=== PATIENT | male | born 1955 | race Caucasian/White ===

== ENCOUNTER → 2019-12-14 | Outpatient (CLI) | payer OTHER | LOC: CAT 10:06 | PROVIDERS: ATTEND Internal Medicine Cardiovascular Disease | DX: Z13.6 Encounter for screening for cardiovascular disorders (principal); I25.10 Atherosclerotic heart disease of native coronary artery without angina pectoris; E78.00 Pure hypercholesterolemia, unspecified ==

== ENCOUNTER → 2019-12-21 | Outpatient (CLI) | payer OTHER | LOC: SJCVC 12:22 | PROVIDERS: ATTEND Internal Medicine Cardiovascular Disease | DX: R94.31 Abnormal electrocardiogram [ECG] [EKG] (principal); I48.19 Other persistent atrial fibrillation; R93.1 Abnormal findings on diagnostic imaging of heart and coronary circulation; I10 Essential (primary) hypertension; E11.9 Type 2 diabetes mellitus without complications; E78.00 Pure hypercholesterolemia, unspecified; Z79.82 Long term (current) use of aspirin; Z79.899 Other long term (current) drug therapy ==

== ENCOUNTER → 2019-12-28 | Outpatient (CLI) | payer OTHER ==
[~2019-12-28] MED LIST: AMITIZA 24 MCG24 MC1 PO; ASA81BEC PO; CARVEDILOL25 MG PO; CELEBREX 200 M200 MG PO; LASIX 40 MG TAB40 MG PO; LEVO-T75 MCG PO; LIPITOR10 MG PO; LOVAZA1000 MG PO; LYRICA150 MG PO; OXYCONTIN10 M1 PO; PREDNISOLONE 5 M5 M1 PO; PRILOSEC OTC20 MG PO; XARELTO20 MG PO
== END ==
LOC: SJCVCIMAG 07:29
PROVIDERS: ATTEND Internal Medicine Cardiovascular Disease
DX: I08.3 Combined rheumatic disorders of mitral, aortic and tricuspid valves (principal); I27.20 Pulmonary hypertension, unspecified; I11.9 Hypertensive heart disease without heart failure; I49.3 Ventricular premature depolarization; E11.9 Type 2 diabetes mellitus without complications; I25.10 Atherosclerotic heart disease of native coronary artery without angina pectoris; I48.0 Paroxysmal atrial fibrillation; E78.00 Pure hypercholesterolemia, unspecified; Z79.899 Other long term (current) drug therapy

== ENCOUNTER → 2020-01-03 | Outpatient (CLI) | payer OTHER ==
[~2020-01-03] VITALS: Ht 185.4 cm; Wt 122.7 kg
[2020-01-03 08:37] VITALS: BP 115/65
--- NOTE | 2020-01-03 12:04 | CATHLAB ---
Formerly [facility] [place] [address] INVASIVE PROCEDURE REPORT Name: INOCENCIO FERNANDEZ Room #: REG RUDDY Matias#: [id number] Admission: 01/03/20 Attend Phys: Jan Krueger MD Discharge: Date of : 51 Report #: [id number] THIS REPORT FOR: cc: Sam Lazcano Damon DO Park, Jin S. MD ~ APPROVED REPORT Study performed: 01/03/2020 08:26:25 Patient Details Patient Status: Out-Patient Room #: The patient is a 64 year-old male Event Personnel Jan Krueger Campaign Marketing Specialist, Sapna Pedro RN RN, Chelsy Casas RTR, ELSA Scrub, Matheus Delaney RTR Scrub, Sejal Yeh Monitor Procedures Performed Art Access - R radial artery Left Heart Cath w/or w/o Coronaries [id number] [facility] Hemostasis with Hemoband 25165 Initial Mod Sed Same Phys/QHP Gr5y 874251 59584 Mod Sed Same Phys/QHP Ea 772429 Indication Dyspnea, Positive stress test Risk Factors Obesity, Peripheral Vascular Disease, Hypercholesterolemia, Coronary Artery DiseaseHypertension, Diabetes Procedure Narrative The Right Wrist^ was infiltrated with 1% Lidocaine subcutaneous anesthesia. A PINNACLE 6FR TIF Sheath #[id number] sheath was inserted into the Right Radial Artery^. Coronary angiography was performed using coronary diagnostic catheters. The right coronary system was accessed and visualized with a 3DRC catheter. The left coronary system was accessed and visualized with a XB 3 6F GUIDE catheter. The patient tolerated the procedure well and there were no complications associated with the procedure. There was no hematoma. Intraoperative Conscious Sedation Sedation start time: 947 Case end Time: [facility] [address] [place] [address] INVASIVE PROCEDURE REPORT Name: INOCENCIO FERNANDEZ Hector Room #: REG [facility]#: [id number] Admission: 01/03/20 Attend Phys: Jan Krueger MD Discharge: Date of : 51 Report #: [id number] 1030 Fentanyl 50 mcg Versed 1 mg Fluoro Time: 2862.00 minutes Dose: DAP 91702.00 cGycm2 2862 mGy Contrast Type and Amount: Omnipaque 55 ml Coronary Angiography The patient's coronary anatomy is right dominant. Diagnostic Cath Left Main The left main artery is a large-caliber vessel, with mild disease at the ostium. LAD The LAD is a moderate-sized caliber vessel, travels down the anterior wall and wraps around the apex. There is mild to moderate disease in the proximal segment, 40%. Diagonal 1 This is a patent vessel, with no flow-limiting lesions. Circumflex There is a moderate stenosis at the ostium, 50%. OM1 This is a small to moderate-sized caliber vessel, with mild to moderate disease proximally. OM2 This is a small to moderate-sized caliber vessel, with mild proximally. Right Coronary The RCA is a dominant vessel with a total occlusion proximally. The distal RCA and its branches are filled via collateral circulation from the left coronary artery. Left Ventriculography Left Ventriculography was not performed. Ejection Fraction was 55-60% based off patient's Nuclear Cardiac Stress Test. An LVEDP was measured and there is no gradient across the outflow tract. Hemodynamics The aortic pressure is 99/57 mmHg with a mean of mmHg. The left ventricular pressure is 115/14 mmHg with a mean of mmHg. The left ventricular end diastolic pressure is 28 mmHg. Conclusion 1. The RCA has a chronic occlusion. The distal RCA and its branches are well filled via collateral circulation from the left coronary artery. 2. There is mild to moderate disease in the LAD and left circumflex arteries. [facility] [address] [place] [address] INVASIVE PROCEDURE REPORT Name: INOCENCIO FERNANDEZ Room #: REG [facility]#: [id number] Admission: 01/03/20 Attend Phys: Jan Krueger MD Discharge: Date of : 51 Report #: [id number] 3. There is normal LV systolic function. 4. Recommend guideline directed medical therapy. <ELECTRONICALLY SIGNED> By: Jan Krueger MD 01/03/20 1204 1204 1204 Jan Krueger MD /INF
== END | disposition home or self-care (01) ==
LOC: CATH 07:55
PROVIDERS: ATTEND Internal Medicine Cardiovascular Disease
DX: R94.39 Abnormal result of other cardiovascular function study (principal); R06.00 Dyspnea, unspecified; I25.10 Atherosclerotic heart disease of native coronary artery without angina pectoris; I10 Essential (primary) hypertension; E78.00 Pure hypercholesterolemia, unspecified; E11.9 Type 2 diabetes mellitus without complications; I73.9 Peripheral vascular disease, unspecified; F17.210 Nicotine dependence, cigarettes, uncomplicated; G62.9 Polyneuropathy, unspecified; K21.9 Gastro-esophageal reflux disease without esophagitis; E66.09 Other obesity due to excess calories; Z98.890 Other specified postprocedural states; Z79.899 Other long term (current) drug therapy; Z82.49 Family history of ischemic heart disease and other diseases of the circulatory system; Z79.82 Long term (current) use of aspirin

== ENCOUNTER → 2020-01-17 | Outpatient (CLI) | payer OTHER | LOC: SJCVC 12:59 | PROVIDERS: ATTEND Internal Medicine Cardiovascular Disease | DX: R94.31 Abnormal electrocardiogram [ECG] [EKG] (principal); I25.10 Atherosclerotic heart disease of native coronary artery without angina pectoris; I48.0 Paroxysmal atrial fibrillation; I10 Essential (primary) hypertension; E78.00 Pure hypercholesterolemia, unspecified; Z79.899 Other long term (current) drug therapy ==

== ENCOUNTER → 2020-01-26 | Outpatient (CLI) | payer OTHER | LOC: SJCVC 14:43 | PROVIDERS: ATTEND Internal Medicine Cardiovascular Disease | DX: I48.0 Paroxysmal atrial fibrillation (principal); I48.19 Other persistent atrial fibrillation; I11.9 Hypertensive heart disease without heart failure; I25.10 Atherosclerotic heart disease of native coronary artery without angina pectoris; E11.9 Type 2 diabetes mellitus without complications; Z87.891 Personal history of nicotine dependence ==

== ENCOUNTER → 2020-03-01 | Outpatient (CLI) | payer OTHER ==
[~2020-03-01] MED LIST changes: +LIPITOR 20 MG T20 M1 PO; +PACERONE 200 M200 M1 PO; +PLAQUENIL200 MG PO; +PREDNISONE 5 MG5 M1 PO
== END ==
LOC: SJCVC 15:01
PROVIDERS: ATTEND Internal Medicine Cardiovascular Disease
DX: R94.31 Abnormal electrocardiogram [ECG] [EKG] (principal); R00.1 Bradycardia, unspecified; I48.0 Paroxysmal atrial fibrillation; I25.10 Atherosclerotic heart disease of native coronary artery without angina pectoris; E11.9 Type 2 diabetes mellitus without complications; I10 Essential (primary) hypertension; E66.9 Obesity, unspecified; G62.9 Polyneuropathy, unspecified; G47.30 Sleep apnea, unspecified; Z79.82 Long term (current) use of aspirin; Z79.899 Other long term (current) drug therapy; Z87.891 Personal history of nicotine dependence

== ENCOUNTER → 2020-03-10 | Outpatient (CLI) | payer OTHER ==
[2020-03-10 09:56] LABS: ABSOLUTE NEUTROPHILS 3.9 thou/uL (1.4-8.2); EOSINOPHILS 2.8 % (0.0-3.0); HEMATOCRIT 44.8 % (42.0-52.0); HEMOGLOBIN 14.9 gm/dL (14.0-18.0); LYMPHOCYTES 27.8 % (24.0-44.0); MCH 33.9 pg (26.0-34.0); MCHC 33.2 g/dL (28.0-37.0); MONOCYTES 8.8 % (1.0-8.0); PLATELET COUNT 159 thou/uL (150-400); POLYS 59.6 % (36.0-66.0); RBC 4.39 mil/uL (4.50-6.00); RDW 14.4 % (10.5-14.5); WBC 6.5 thou/uL (4.0-11.0)
[2020-03-10 10:05] LABS: ALBUMIN 3.9 g/dL (3.4-5.0); CALCIUM 9.3 mg/dL (8.5-10.1); CREATININE 1.1 mg/dL (0.7-1.3); POTASSIUM 4.3 mmol/L (3.5-5.1); TOTAL BILIRUBIN 0.8 mg/dL (0.2-1.0); TOTAL PROTEIN 6.7 g/dL (6.4-8.2)
== END ==
LOC: LAB 09:01 → CAT 09:01
PROVIDERS: ATTEND Internal Medicine Cardiovascular Disease
DX: Z01.818 Encounter for other preprocedural examination (principal); I48.91 Unspecified atrial fibrillation; I25.10 Atherosclerotic heart disease of native coronary artery without angina pectoris

== ENCOUNTER → 2020-03-10 | Outpatient (CLI) | payer OTHER ==
[~2020-03-10] MED LIST changes: -LIPITOR 20 MG T20 M1 PO; -PACERONE 200 M200 M1 PO; -PLAQUENIL200 MG PO; -PREDNISONE 5 MG5 M1 PO
== END ==
LOC: LAB 10:50
PROVIDERS: ATTEND Internal Medicine Cardiovascular Disease
DX: Z01.812 Encounter for preprocedural laboratory examination (principal); Z20.828 Contact with and (suspected) exposure to other viral communicable diseases

== ENCOUNTER 2020-03-15 06:22 | Observation (INO) | payer OTHER ==
[~2020-03-15] VITALS: Ht 185.4 cm; Wt 124.7 kg
[2020-03-15] VITALS (10 sets, daily range): BP systolic 116–145; BP diastolic 66–87
--- NOTE | ~2020-03-15 | P ---
[facility] [place] [address] PROCEDURE REPORT Name: INOCENCIO FERNANDEZ Room #: 207-P [facility] Pepper.#: [id number] Admission: 03/15/20 Attend Phys: Speedy Loya MD Discharge: Date of : 53 Report #: [id number] THIS REPORT FOR: cc: Sam Lazcano,Sam Mahan,Speedy Easton MD ~ CC: Sam Loya DATE OF SERVICE: 03/15/2020 PREOPERATIVE DIAGNOSIS: Atrial fibrillation. POSTOPERATIVE DIAGNOSIS: Atrial fibrillation. HISTORY: The patient is a 65-year-old with history of atrial fibrillation, here for ablation. PROCEDURES PERFORMED: 1. Atrial fibrillation ablation, CPT code 72776. 2. 3D mapping, CPT code 67540. 3. Intracardiac echo, CPT code 26894. 4. Focal ablation, CPT code 54853. ANESTHESIA: The patient underwent general anesthesia with no anesthesia related complications. DESCRIPTION OF PROCEDURE: The patient underwent informed consent. We discussed the details of the procedure including the risks, which include but not limited to bleeding, vascular damage, stroke, [place] as well as cardiac perforation. He understood these risks and is willing to proceed. The patient was brought to EP laboratory in fasting and sedated state, prepped and draped in sterile fashion. I obtained access to the right femoral vein x 3, placing an 8, 9 and 7-English short sheaths using the modified Seldinger technique. Next, under fluoroscopy, decapolar catheter was placed into the coronary sinus. At baseline, the patient was in atrial fibrillation. Using intracardiac ultrasound, I noted that the patient had two left and two right pulmonary veins. There was also a right middle vein that appeared to be coming off the right inferior pulmonary vein. The patient had a nice thin interatrial septum. The patient was systemically heparinized and a transseptal was performed using an SL1 sheath and a Dallas needle. This was straightforward and I exchanged the SL1 sheath with the cryo sheath and placed a Lasso catheter in the left atrium. Next, I created a detailed 3D geometry and voltage map of the left atrium and then placed the cryoballoon into the left atrium. The left superior pulmonary vein underwent two 4-minute freezes, which resulted in [facility] [address] [place] [address] PROCEDURE REPORT Name: INOCENCIO FERNANDEZ Room #: 207-P [facility] Angelica Decker#: [id number] Admission: 03/15/20 Attend Phys: Speedy Loya MD Discharge: Date of : 51 Report #: [id number] isolation of the vein. Left inferior pulmonary vein underwent a single 4-minute freeze, which resulted in isolation in 30 seconds. The right superior pulmonary vein underwent a 90-second freeze, but that came off because the temps were very cold and I adjusted and performed a second freeze of 4 minutes' duration, which resulted in isolation within 30 seconds. I then turned my attention to the right inferior pulmonary vein and performed two 4-minute freezes and appeared that this vein was isolated. The patient then underwent a posterior roofline. I performed 4 freezes, each of 3 minutes duration along the roof region of the left atrium. Next, the patient was cardioverted and a repeat map was created and showed that all veins were isolated except the right inferior pulmonary vein. This right inferior pulmonary vein had 2 early branches, one superior and one inferior. I therefore went back in with the cryoballoon and performed a 3-minute freeze in the superior branch and a 3-minute freeze in the inferior branch. I then performed an additional 3-minute freeze along the inferior aspect of the right inferior pulmonary vein. I remapped it and this was now isolated. I then went back in with the Lasso and created a detailed 3D voltage map and this showed that we had wide circumferential ablation of all 4 pulmonary veins and that the roof region was also now isolated. Post-ablation, I performed an EP study. His AH interval was noted to be 95 milliseconds, HV interval was 45 milliseconds. AV block was noted at 390 milliseconds. AV candy ERP was noted at 370 milliseconds at a [address] cycle length. Sinus node recovery time was performed pacing at 350 milliseconds and this was noted to be 2000 milliseconds. Next, pacing was performed at 300 milliseconds and the sinus node recovery time was 1300 milliseconds. Post-ablation, the patient had a spontaneous atrial fibrillation and underwent a repeat 200 joule cardioversion. At this point, the procedure was concluded. The patient received systemic protamine and once ACT was within acceptable range, catheters and sheaths were pulled. Hemostasis was obtained. A iobfbc-ji-vcizo suture was performed in the right groin region. CONCLUSIONS: 1. Successful atrial fibrillation ablation with isolation of the pulmonary veins. 2. Successful posterior roofline creation. 3. Normal EP study with normal SA candy function and AV candy function. By: [id number] Speedy Loya MD /nt
[2020-03-15] MEDS ORDERED: PLAQUENIL200 MG PO (07:03)
[2020-03-15] MEDS ORDERED: LIPITOR 20 MG T20 M1 PO (07:04)
[2020-03-15] MEDS ORDERED: PREDNISONE 5 MG5 M1 PO (07:10)
[2020-03-15 07:43] LABS: ABSOLUTE NEUTROPHILS 4.2 thou/uL (1.4-8.2); EOSINOPHILS 3.3 % (0.0-3.0); HEMATOCRIT 43.9 % (42.0-52.0); HEMOGLOBIN 14.9 gm/dL (14.0-18.0); LYMPHOCYTES 31.4 % (24.0-44.0); MCH 34.5 pg (26.0-34.0); MCV 101.5 fL (80.0-100.0); MONOCYTES 8.8 % (1.0-8.0); PLATELET COUNT 173 thou/uL (150-400); POLYS 55.5 % (36.0-66.0); RBC 4.32 mil/uL (4.50-6.00); RDW 13.9 % (10.5-14.5); WBC 7.6 thou/uL (4.0-11.0)
[2020-03-15 07:54] LABS: CALCIUM 9.2 mg/dL (8.5-10.1); POTASSIUM 4.5 mmol/L (3.5-5.1)
[2020-03-15 08:00] LABS: ALBUMIN 4.2 g/dL (3.4-5.0); APTT 25.3 Seconds (24.5-32.8); PROTIME 10.7 Seconds (9.3-11.4); TOTAL BILIRUBIN 0.7 mg/dL (0.2-1.0)
[2020-03-15] MEDS ORDERED: PACERONE 200 M200 M1 PO (12:31)
--- NOTE | 2020-03-15 15:18 | NUR ---
RIGHT GROIN IS C,D,i REMOVED STICHES AND CATHTER AT SITE, NO HEMATOMA, NO OOZING, NO MOTTLING AROUND SITE OR ON EITH LEGS OBSERVED. DENIES ANY CHEST PAIN, NO SOB, ON ROOM AIR. ATE ALL HIS LUNCH. HEART RATE FLUCTUATES ANYWHERE BETWEEN 100-125 ON AMIODARONE GTT WITH FILTER TUBING TO RIGHT FOREARM NO SIGN'S OF INFILTRATION AT SITE NOTED. PEDAL PULSES ARE 2+ BILATERALLY.
[2020-03-16 00:02] VITALS: BP 131/75
--- NOTE | 2020-03-16 03:40 | NUR ---
PATIENT OFF BEDREST AT 1900.RIGHT GROIN C/D/I.NO HEMATOMA NOTED.SANTOS DISCONTINUED.VOIDED PER URINAL.BILATERAL LOWER EXTREMITY PAIN WELL CONTROLLED. PATIENT CHOSE TO SLEEP ON THE RECLINER.MONITOR SHOWS ST.POC CONTINUED.
[2020-03-16 04:15] VITALS: BP 126/84
[2020-03-16 07:21] VITALS: BP 120/77
[2020-03-16 10:17] VITALS: BP 120/77
[2020-03-16 11:23] VITALS: BP 106/66
--- NOTE | 2020-03-16 18:56 | D ---
[facility] [place] [address] DISCHARGE SUMMARY Name: INOCENCIO FERNANDEZ Room #: 207-P [facility] Jeronimo#: [id number] Admission: 03/15/20 Attend Phys: Speedy Loya MD Discharge: 03/16/20 Date of : 53 Report #: [id number] THIS REPORT FOR: cc: Sam Lazcano,Matt Cam MD ~ CC: Sam Loya DATE OF SERVICE: 03/16/2020 ADMITTING DIAGNOSIS: Symptomatic paroxysmal atrial fibrillation. DISCHARGE DIAGNOSES: 1. Symptomatic paroxysmal atrial fibrillation. 2. Coronary artery disease. 3. Diabetes mellitus. 4. Hypertension with neuropathy. PROCEDURES PERFORMED: Atrial fibrillation ablation. DISCHARGE MEDICATIONS: Aspirin 81 mg daily, carvedilol 25 mg b.i.d., Celebrex 200 mg daily, furosemide 40 mg daily, levothyroxine 0.075 daily, lubiprostone 24 mcg capsule b.i.d., omega-3 (Lovaza) 2000 b.i.d., omeprazole 20 daily, oxycodone as needed, Lyrica 150 mg b.i.d., Xarelto 20 mg daily, atorvastatin 20 mg daily, prednisone 5 mg daily, amiodarone 400 mg b.i.d. FOLLOWUP: Dr. Loya in next week. Appointment will be determined on Friday. BRIEF CLINICAL HISTORY: See history and physical in the chart. HOSPITAL COURSE: The patient was admitted to the hospital and underwent uncomplicated atrial fibrillation ablation. Post-procedure, he was found to be in atrial flutter and amiodarone initiated. He has been hemodynamically stable post-procedure and was allowed to ambulate without any difficulties or issues. No hematoma was identified. Discharge physical examination was unremarkable. He is being discharged home in stable and improved condition with previously stated discharge instructions and medications. <ELECTRONICALLY SIGNED> By: Matt Winchester MD 03/16/20 1856 1003 1025 Matt Winchester MD /nt
== END 2020-03-16 12:30 | disposition home or self-care (01) ==
LOC: CATH 06:22 → 2N 07:15 → CATH 11:21 → 2N 12:37
PROVIDERS: ADMIT Internal Medicine Cardiovascular Disease; ATTEND Internal Medicine Cardiovascular Disease
DX: I48.91 Unspecified atrial fibrillation (principal); I25.10 Atherosclerotic heart disease of native coronary artery without angina pectoris; E78.5 Hyperlipidemia, unspecified; E11.42 Type 2 diabetes mellitus with diabetic polyneuropathy; G47.33 Obstructive sleep apnea (adult) (pediatric); E66.9 Obesity, unspecified; Z68.36 Body mass index [BMI] 36.0-36.9, adult; Z79.82 Long term (current) use of aspirin; Z79.899 Other long term (current) drug therapy; Z87.891 Personal history of nicotine dependence
CPT/HCPCS: 62110; 62900; 65020; 65040; 65130; 70005

== ENCOUNTER → 2020-03-23 | Outpatient (CLI) | payer OTHER ==
[~2020-03-23] MED LIST changes: +HYDROCODON-ACE1 EA10 PO; +LIPITOR 20 MG T20 M1 PO; +PACERONE 200 M200 M1 PO; +PLAQUENIL200 MG PO; +PREDNISONE 5 MG5 M1 PO
== END ==
LOC: SJCVC 14:34
PROVIDERS: ATTEND Internal Medicine Cardiovascular Disease
DX: I48.0 Paroxysmal atrial fibrillation (principal); R94.31 Abnormal electrocardiogram [ECG] [EKG]; I25.10 Atherosclerotic heart disease of native coronary artery without angina pectoris; I10 Essential (primary) hypertension; E66.9 Obesity, unspecified; E78.5 Hyperlipidemia, unspecified; Z87.891 Personal history of nicotine dependence; Z79.82 Long term (current) use of aspirin; Z79.899 Other long term (current) drug therapy

== ENCOUNTER → 2020-03-27 | Outpatient (CLI) | payer OTHER ==
[~2020-03-27] MED LIST changes: -HYDROCODON-ACE1 EA10 PO
== END ==
LOC: LAB 11:29
PROVIDERS: ATTEND Internal Medicine Cardiovascular Disease
DX: Z01.812 Encounter for preprocedural laboratory examination (principal); Z20.828 Contact with and (suspected) exposure to other viral communicable diseases

== ENCOUNTER → 2020-03-31 | Outpatient (CLI) | payer OTHER ==
[~2020-03-31] VITALS: Ht 185.4 cm; Wt 125.0 kg
[~2020-03-31] MED LIST changes: +HYDROCODON-ACE1 EA10 PO
--- NOTE | ~2020-03-31 | P ---
[facility] [place] [address] PROCEDURE REPORT Name: INOCENCIO FERNANDEZ Room #: REG [facility]#: [id number] Admission: 03/31/20 Attend Phys: Speedy Loya MD Discharge: Date of : 53 Report #: [id number] THIS REPORT FOR: cc: Sam Lazcano Damon DO Couchonnal, Luis F. MD ~ DATE OF SERVICE: 03/31/2020 PREOPERATIVE DIAGNOSIS: Atrial fibrillation. POSTOPERATIVE DIAGNOSIS: Atrial fibrillation. DESCRIPTION OF PROCEDURE: The patient underwent informed consent. He was prepped in a standard fashion. He was sedated by the Anesthesiology service. Once sedated, he underwent a 200 joule synchronized cardioversion with yazidism of sinus rhythm. There were no procedure related complications. CONCLUSIONS: Successful DC cardioversion with yazidism of sinus rhythm. By: 1234 [id number] Speedy Loya MD /nt
[2020-03-31 10:49] VITALS: BP 118/77
[2020-03-31 11:04] LABS: ABSOLUTE NEUTROPHILS 3.8 thou/uL (1.4-8.2); BASOPHILS 1.2 % (0.0-2.0); EOSINOPHILS 3.1 % (0.0-3.0); HEMATOCRIT 44.1 % (42.0-52.0); HEMOGLOBIN 14.7 gm/dL (14.0-18.0); MCH 34.1 pg (26.0-34.0); MCHC 33.4 g/dL (28.0-37.0); MCV 102.2 fL (80.0-100.0); MONOCYTES 7.3 % (1.0-8.0); PLATELET COUNT 202 thou/uL (150-400); POLYS 54.4 % (36.0-66.0); RBC 4.31 mil/uL (4.50-6.00); RDW 14.2 % (10.5-14.5)
[2020-03-31 11:16] LABS: CALCIUM 9.1 mg/dL (8.5-10.1); CREATININE 0.9 mg/dL (0.7-1.3); POTASSIUM 4.3 mmol/L (3.5-5.1)
[2020-03-31 11:18] LABS: INR 1.1; PROTIME 11.2 Seconds (9.3-11.4)
[2020-03-31 11:19] LABS: TOTAL BILIRUBIN 0.7 mg/dL (0.2-1.0); TOTAL PROTEIN 6.9 g/dL (6.4-8.2)
== END | disposition home or self-care (01) ==
LOC: CATH 08:22
PROVIDERS: ATTEND Internal Medicine Cardiovascular Disease
DX: I48.91 Unspecified atrial fibrillation (principal); I10 Essential (primary) hypertension; E11.9 Type 2 diabetes mellitus without complications; I25.10 Atherosclerotic heart disease of native coronary artery without angina pectoris; E78.00 Pure hypercholesterolemia, unspecified; G62.9 Polyneuropathy, unspecified; G47.30 Sleep apnea, unspecified; K21.9 Gastro-esophageal reflux disease without esophagitis; E66.9 Obesity, unspecified; Z98.890 Other specified postprocedural states; Z79.899 Other long term (current) drug therapy; Z79.01 Long term (current) use of anticoagulants; Z87.891 Personal history of nicotine dependence; Z82.49 Family history of ischemic heart disease and other diseases of the circulatory system
CPT/HCPCS: 62110; 62900

== ENCOUNTER → 2020-05-02 | Outpatient (CLI) | payer OTHER | LOC: SJCVC 14:03 | PROVIDERS: ATTEND Internal Medicine Cardiovascular Disease | DX: I44.30 Unspecified atrioventricular block (principal); I48.92 Unspecified atrial flutter; R94.31 Abnormal electrocardiogram [ECG] [EKG]; I48.0 Paroxysmal atrial fibrillation; I11.9 Hypertensive heart disease without heart failure; E11.9 Type 2 diabetes mellitus without complications; R93.1 Abnormal findings on diagnostic imaging of heart and coronary circulation; E78.00 Pure hypercholesterolemia, unspecified; I48.3 Typical atrial flutter; Z87.891 Personal history of nicotine dependence; Z72.89 Other problems related to lifestyle ==

== ENCOUNTER → 2020-05-22 | Outpatient (CLI) | payer OTHER | LOC: LAB 13:37 | PROVIDERS: ATTEND Internal Medicine Cardiovascular Disease | DX: Z20.822 Contact with and (suspected) exposure to COVID-19 (principal) ==

== ENCOUNTER 2020-05-25 06:18 | Observation (INO) | payer OTHER ==
[~2020-05-25] VITALS: Ht 185.4 cm; Wt 127.0 kg
[2020-05-25] VITALS (10 sets, daily range): BP systolic 98–118; BP diastolic 62–77
--- NOTE | ~2020-05-25 | P ---
[facility] [place] [address] PROCEDURE REPORT Name: INOCENCIO FERNANDEZ Room #: 208-P [facility] Angelica Decker#: [id number] Admission: 05/25/20 Attend Phys: Speedy Loya MD Discharge: 05/26/20 Date of : 51 Report #: [id number] THIS REPORT FOR: cc: Sam Lazcano Damon DO Couchonnal,Speedy Easton MD ~ DATE OF SERVICE: 05/25/2020 PREOPERATIVE DIAGNOSES: 1. Atrial fibrillation. 2. Atypical atrial flutter. POSTOPERATIVE DIAGNOSES: 1. Atrial fibrillation. 2. Mitral annular flutter. PROCEDURES PERFORMED: 1. Atrial fibrillation ablation, CPT code 96560. 2. 3D mapping, CPT code 64918. 3. Intracardiac ultrasound, CPT code 81129. 4. Focal ablation, CPT code 64573. 5. Second pathway ablation for mitral annular flutter, CPT code 66123. HISTORY: The patient is a 65-year-old status post recent AFib ablation, who has had clinical recurrence of an atypical atrial flutter, who is here for AFib and atrial flutter ablation. ANESTHESIA: The patient underwent general anesthesia with no anesthesia related complications. DESCRIPTION OF PROCEDURE: The patient underwent informed consent. We discussed the details of the procedure including the risks, which include, but are not limited to, bleeding, vascular damage, stroke, [place] as well as cardiac perforation. He understood these risks and was willing to proceed. The patient was brought to EP laboratory in a fasting and sedated state, prepped and draped in a sterile fashion. I obtained access to the right femoral vein x 3, placing two 8 and a 9-Congolese short sheath. Next, under fluoroscopy, a decapolar catheter was placed into the coronary sinus for left atrial pacing and recording and an ICE catheter was placed in the right atrium. At baseline, the patient was in an atypical atrial flutter with an atrial cycle length of 250 milliseconds and a vertical activation along the decapolar catheter. Next, I placed a PentaRay catheter into the right atrium and created a voltage activation map, which showed that this atrial flutter was not right-sided and appeared to be arising from the left atrium. Therefore, the patient was [address] [address] PROCEDURE REPORT Name: INOCENCIO FERNANDEZ Room #: 208-P [facility] Angelica Decker#: [id number] Admission: 05/25/20 Attend Phys: Speedy Loya MD Discharge: 05/26/20 Date of : 51 Report #: [id number] systemically heparinized and a transseptal was performed using an SL1 sheath and a Waverly needle and this was straightforward. I eventually exchanged over to an Agilis sheath and then I placed the PentaRay catheter into the left atrium. I started by creating a 3D voltage map and activation map. This demonstrated that all 4 pulmonary veins remained isolated. The right inferior pulmonary vein appeared to be mostly isolated, but there were still some signals along the lower aspect of the vein. Therefore, I placed the ablation catheter back into the left atrium and started by performing additional ablation along the right inferior pulmonary vein. I then decided to isolate the remainder of the posterior wall. Previously, we had performed a roofline using the cryoablation balloon and this appeared to be mostly isolated except the area of the roof that was connected to the left superior pulmonary vein, so I performed additional ablation along this site and performed additional ablation along the posterior wall where there was fractionated atrial electrograms and I also performed additional ablation connecting the left inferior pulmonary vein to the mitral annulus. Despite this, the patient remained in atrial flutter. Repeat voltage map was created and activation map was created and we had essentially isolated the entire posterior wall and the flutter appeared to be mitral annular in nature. Therefore, I decided to perform a line from the anterior mitral annulus to the right superior pulmonary vein. This was performed at 40 jurado. As we were performing this, the flutter cycle length continued to increase initially from 250-300 milliseconds; and then as we were nearing completion, cycle length increased to 350 milliseconds and then I found a gap near the right superior pulmonary vein and ablation here resulted in termination of his atrial flutter. A repeat voltage map was created and we had no other inducible arrhythmias. At this point, the procedure was concluded. There was no evidence of pericardial effusion using intracardiac ultrasound. The patient received systemic protamine; and once ACT was within acceptable range, catheters and sheaths were pulled and hemostasis was obtained. The patient awoke neurologically and hemodynamically intact. No complications and no significant bleeding. CONCLUSIONS: 1. Successful atrial fibrillation ablation with re-isolation of the right inferior pulmonary vein. 2. Successful posterior wall isolation. 3. Successful ablation of a mitral annular flutter. By: 1001 1539 Speedy Loya MD /nt
[2020-05-25 07:37] LABS: ABSOLUTE NEUTROPHILS 3.8 thou/uL (1.4-8.2); EOSINOPHILS 2.6 % (0.0-3.0); HEMATOCRIT 41.2 % (42.0-52.0); HEMOGLOBIN 13.8 gm/dL (14.0-18.0); LYMPHOCYTES 34.5 % (24.0-44.0); MCH 34.3 pg (26.0-34.0); MCHC 33.5 g/dL (28.0-37.0); MCV 102.7 fL (80.0-100.0); PLATELET COUNT 156 thou/uL (150-400); POLYS 52.9 % (36.0-66.0); RBC 4.02 mil/uL (4.50-6.00); RDW 14.5 % (10.5-14.5); WBC 7.2 thou/uL (4.0-11.0)
[2020-05-25 07:40] LABS: CALCIUM 8.6 mg/dL (8.5-10.1); CREATININE 1.1 mg/dL (0.7-1.3); POTASSIUM 3.9 mmol/L (3.5-5.1)
[2020-05-25 07:45] LABS: ALBUMIN 3.8 g/dL (3.4-5.0); TOTAL BILIRUBIN 0.6 mg/dL (0.2-1.0); TOTAL PROTEIN 6.4 g/dL (6.4-8.2)
[2020-05-25 07:59] LABS: APTT 25.7 Seconds (24.5-32.8); PROTIME 10.7 Seconds (9.3-11.4)
[2020-05-25] MEDS ORDERED: HYDROCHLOROTHIA50 MG PO (08:07)
[2020-05-25] MEDS ORDERED: AMITIZA 24 MCG24 MC1 PO (08:09)
--- NOTE | 2020-05-25 14:00 | NUR ---
PATIENT ARRIVED TO CCU, REPORT OBTAINED. GROIN WNL, NO BLEEDING, NO HEMATOMA. PATIENT EDUCATED ON ABLATION POST CARE. AT BEDSIDE.
[2020-05-26 00:24] VITALS: BP 122/77
[2020-05-26 05:06] VITALS: BP 130/85
[2020-05-26 07:48] VITALS: BP 142/91
--- NOTE | 2020-05-26 07:53 | NUR ---
patients care was assumed at shift change. patient was assessed and meds were passed . accu check was 233 at hs. sean was d/c'd at approx 2030. this patient is a 23 hour obs. hourly rounds were done. the bed is in a low and locked position.
[2020-05-26 09:20] VITALS: BP 142/91
--- NOTE | 2020-05-26 09:45 | NUR ---
PT ALERT AND ORIENTED TIMES FOUR. VSS. SCHEDULED PAIN MEDICATIONS CONTROLLING PAIN WELL. RIGHT GROIN SITE SOFT C/D/I. PT TOLERATES MEDS AND MEALS. PT UP SITTING IN THE CHAIR. PLANS FOR DISCHARGE THIS MORNING. WILL CONTINUE TO MONITOR.
== END 2020-05-26 10:42 | disposition home or self-care (01) ==
LOC: CATH 06:18 → 2N 13:58
PROVIDERS: ADMIT Internal Medicine Cardiovascular Disease; ATTEND Internal Medicine Cardiovascular Disease
DX: I48.91 Unspecified atrial fibrillation (principal); I48.4 Atypical atrial flutter; I25.10 Atherosclerotic heart disease of native coronary artery without angina pectoris; E11.40 Type 2 diabetes mellitus with diabetic neuropathy, unspecified; E66.9 Obesity, unspecified; Z68.45 Body mass index [BMI] 70 or greater, adult; Z79.82 Long term (current) use of aspirin; Z79.899 Other long term (current) drug therapy; Z87.891 Personal history of nicotine dependence
CPT/HCPCS: 62110; 62900; 65020; 65131; 70005

== ENCOUNTER → 2020-07-12 | Outpatient (CLI) | payer OTHER ==
[~2020-07-12] MED LIST changes: +HYDROCHLOROTHIA50 MG PO
== END ==
LOC: SJCVC 11:19
PROVIDERS: ATTEND Internal Medicine Cardiovascular Disease
DX: R94.31 Abnormal electrocardiogram [ECG] [EKG] (principal); R00.1 Bradycardia, unspecified; I25.10 Atherosclerotic heart disease of native coronary artery without angina pectoris; I48.91 Unspecified atrial fibrillation; I10 Essential (primary) hypertension; E78.00 Pure hypercholesterolemia, unspecified; E11.9 Type 2 diabetes mellitus without complications; E66.9 Obesity, unspecified; E78.5 Hyperlipidemia, unspecified; Z98.890 Other specified postprocedural states; Z79.82 Long term (current) use of aspirin; Z79.899 Other long term (current) drug therapy; Z87.891 Personal history of nicotine dependence

== ENCOUNTER → 2020-08-02 | Outpatient (CLI) | payer OTHER | LOC: SJCVCIMAG 09:27 | PROVIDERS: ATTEND Internal Medicine Cardiovascular Disease | DX: I08.1 Rheumatic disorders of both mitral and tricuspid valves (principal); I11.9 Hypertensive heart disease without heart failure; R00.1 Bradycardia, unspecified; I25.10 Atherosclerotic heart disease of native coronary artery without angina pectoris; I48.0 Paroxysmal atrial fibrillation; E78.00 Pure hypercholesterolemia, unspecified; I48.91 Unspecified atrial fibrillation; E11.40 Type 2 diabetes mellitus with diabetic neuropathy, unspecified; E66.9 Obesity, unspecified; G47.30 Sleep apnea, unspecified; Z79.82 Long term (current) use of aspirin; Z79.899 Other long term (current) drug therapy; Z87.891 Personal history of nicotine dependence; Z72.89 Other problems related to lifestyle ==

== ENCOUNTER → 2020-08-22 | Outpatient (CLI) | payer OTHER | LOC: SJCVC 12:25 | PROVIDERS: ATTEND Internal Medicine Cardiovascular Disease | DX: R00.1 Bradycardia, unspecified (principal); R94.31 Abnormal electrocardiogram [ECG] [EKG]; I48.0 Paroxysmal atrial fibrillation; I48.4 Atypical atrial flutter; I25.10 Atherosclerotic heart disease of native coronary artery without angina pectoris; E11.9 Type 2 diabetes mellitus without complications; I10 Essential (primary) hypertension; E66.9 Obesity, unspecified; G47.30 Sleep apnea, unspecified; Z98.890 Other specified postprocedural states; Z79.82 Long term (current) use of aspirin; Z79.899 Other long term (current) drug therapy; Z87.891 Personal history of nicotine dependence ==

== ENCOUNTER → 2020-09-05 | Outpatient (CLI) | payer OTHER ==
--- NOTE | 2020-09-08 11:34 | P ---
[address] [place] [address] PROCEDURE REPORT Name: INOCENCIO FERNANDEZ [id number] Admission: 09/05/20 Attend Phys: Speedy Loya MD Discharge: Date of : 51 Report #: [id number] THIS REPORT FOR: cc: Sam Lazcano Damon DO Couchonnal, Luis F. MD ~ DOC #: [id number] Speedy Loya MD DATE OF SERVICE: 09/05/2020 PREOPERATIVE DIAGNOSIS: Palpitations. POSTOPERATIVE DIAGNOSIS: Palpitations. PROCEDURE PERFORMED: Implantation of an implantable loop recorder. DESCRIPTION OF PROCEDURE: The patient underwent informed consent. He was prepped and draped in a standard fashion. I then injected lidocaine at the incision site. Incision was made. Device was injected, tested and found to be functioning normally. A single layer of suture was performed and surgical glue was placed on the skin. A dressing was applied. The patient had no procedure related complications. Implantable device was a [employer] LINQ, serial #[id number]. CONCLUSION: Successful implantation of a loop recorder. Speedy Loya MD LFC/ALL <ELECTRONICALLY SIGNED> By: Speedy Loya MD 09/08/20 1134 0732 1045 Speedy Loya MD /salvatore
== END | disposition home or self-care (01) ==
LOC: CATH 08:44
PROVIDERS: ATTEND Internal Medicine Cardiovascular Disease
DX: R00.2 Palpitations (principal); I48.91 Unspecified atrial fibrillation; I25.10 Atherosclerotic heart disease of native coronary artery without angina pectoris; I10 Essential (primary) hypertension; E11.9 Type 2 diabetes mellitus without complications; Z98.890 Other specified postprocedural states; Z79.899 Other long term (current) drug therapy; Z79.01 Long term (current) use of anticoagulants

== ENCOUNTER → 2020-12-05 | Outpatient (CLI) | payer OTHER | LOC: SJCVC 12:19 | PROVIDERS: ATTEND Internal Medicine Cardiovascular Disease | DX: R94.31 Abnormal electrocardiogram [ECG] [EKG] (principal); I48.91 Unspecified atrial fibrillation; I48.4 Atypical atrial flutter; I25.10 Atherosclerotic heart disease of native coronary artery without angina pectoris; E11.9 Type 2 diabetes mellitus without complications; E66.1 Drug-induced obesity; G62.9 Polyneuropathy, unspecified; Z87.891 Personal history of nicotine dependence; Z79.899 Other long term (current) drug therapy; Z72.89 Other problems related to lifestyle ==

== ENCOUNTER → 2021-02-07 | Outpatient (CLI) | payer OTHER | LOC: SJCVC 14:07 | PROVIDERS: ATTEND Internal Medicine Cardiovascular Disease | DX: I25.10 Atherosclerotic heart disease of native coronary artery without angina pectoris (principal); I48.91 Unspecified atrial fibrillation; I10 Essential (primary) hypertension; E78.00 Pure hypercholesterolemia, unspecified; E11.9 Type 2 diabetes mellitus without complications; Z79.82 Long term (current) use of aspirin; Z79.891 Long term (current) use of opiate analgesic; Z79.2 Long term (current) use of antibiotics; Z79.899 Other long term (current) drug therapy; Z87.891 Personal history of nicotine dependence; Z72.89 Other problems related to lifestyle ==